=== PATIENT | male | born 1945 | race Caucasian/White ===

== ENCOUNTER 2019-04-26 07:56 | Day surgery (SDC) ==
--- NOTE | 2019-04-19 17:09 | EKG Report ---
Test Performed on : 04/19/2019 5:00:15 PM Test Reason : PAT Blood Pressure : / mmHG Vent. Rate : 079 BPM Atrial Rate : 079 BPM P-R Int : 188 ms QRS Dur : 076 ms QT Int : 356 ms P-R-T Axes : 071 -34 052 degrees QTc Int : 408 ms Normal sinus rhythm. Left axis deviation Abnormal ECG When compared with ECG of 01-JUL-2017 14:07, No significant change was found Confirmed by Merle JOHNSTON, Yann ([id number]) on 04/19/2019 5:42:41 PM
[2019-04-19 17:18] LABS: URINE SOURCE CLEAN CATCH
[2019-04-19 17:24] LABS: BASO# 0.02 X1000 (0.0-0.2); BASO% 0.2 % (0.0-0.8); EOS% 6.1 % (0.0-10.0); HEMATOCRIT 45.4 % (42.0-52.0); HEMOGLOBIN 14.9 g/dL (14.0-18.0); IMM GRAN# 0.03 X1000 (0.0-0.04); IMM GRAN% 0.4 % (0.0-0.5); LYMPH# 3.08 X1000 (1.2-3.4); LYMPH% 37.6 % (20.5-51.1); MCH 30.8 PG (27-31); MCHC 32.8 g/dL (33-37); MONO# 0.77 X1000 (0.11-0.59); MONO% 9.4 % (1.7-9.3); MPV 10.9 FL (7.4-10.4); NEUT% 46.3 % (42.2-75.2); PLT 184 X1000 (130-400); RBC 4.83 XMIL (4.7-6.1); RDW 13.1 % (11.5-14.5)
[2019-04-19 17:25] LABS: BILIRUBIN URINE NEGATIVE (NEGATIVE); BLOOD URINE NEGATIVE (NEGATIVE); COLOR YELLOW; GLUCOSE URINE NEGATIVE (NEGATIVE); KETONE URINE NEGATIVE (NEGATIVE); LEUKOCYTES URINE NEGATIVE (NEGATIVE); NITRITE URINE NEGATIVE (NEGATIVE); PROTEIN URINE NEGATIVE (NEGATIVE); SP GRAVITY URINE 1.016; TURBIDITY URINE CLEAR (CLEAR); UR EPITHELIAL CELLS <10 /HPF (<10); URINE BACTERIA NEGATIVE /HPF; URINE RBC <10 /HPF (<10); URINE WBC <10 /HPF (<10); UROBILINOGEN URINE NORMAL (NORMAL)
[2019-04-19 17:34] LABS: HEMOGLOBIN A1C 5.8 % (4.8-6.0)
[2019-04-19 17:39] LABS: INR 0.96; PROTIME 12.9 Seconds (11.0-16.0)
[2019-04-19 17:40] LABS: PTT 26.1 Seconds (22.3-41.8)
[2019-04-19 17:45] LABS: CALCIUM 9.8 mg/dL (8.8-10.2); CREATININE 1.4 mg/dL (0.7-1.2); POTASSIUM 4.5 mmol/L (3.5-5.1)
[2019-04-26] MEDS ORDERED: COLACE ONE (08:07)
[2019-04-26] MEDS ORDERED: LR 1,000 ML ONE (08:07)
[2019-04-26] MEDS ORDERED: REGLAN ONE (08:07)
[2019-04-26] MEDS ORDERED: CELEBREX ONE (08:07)
[2019-04-26] MEDS ORDERED: LYRICA ONE (08:07)
[2019-04-26] MEDS ORDERED: KEFZOL 1 GM/D5W 2 GM/100 ML IVPB ONE (08:07)
[2019-04-26] MEDS ORDERED: PEPCID ONE (08:07)
[2019-04-26] MEDS ORDERED: XYLOCAINE-MPF 2% ONE ×2 (08:21→11:34)
[2019-04-26] MEDS ORDERED: DECADRON ONE (08:21)
[2019-04-26] MEDS ORDERED: VERSED ONE (08:22)
[2019-04-26] MEDS ORDERED: FENTANYL ONE (08:23)
[2019-04-26] MEDS ORDERED: TORADOL ONE (09:35)
[2019-04-26] MEDS ORDERED: DURAMORPH ONE (09:35)
[2019-04-26] MEDS ORDERED: MARCAINE 0.25% PF ONE (09:35)
[2019-04-26] MEDS ORDERED: VANCOMYCIN ONE ×2 (09:35→11:16)
[2019-04-26] MEDS ORDERED: NEOSPORIN G.U. IRRIGANT ONE (09:36)
[2019-04-26] MEDS ORDERED: SODIUM CHLORIDE 0.9% ONE (09:36)
[2019-04-26] MEDS ORDERED: EXPAREL 1.3% ONE (09:36)
[2019-04-26] MEDS ORDERED: DIPRIVAN 1% 500 MG/50 ML BOTTLE ONE (09:37)
[2019-04-26] MEDS ORDERED: ZOFRAN ONE (10:21)
[2019-04-26] MEDS ORDERED: OFIRMEV 1000 MG/ISOTONIC SOLN 1,000 MG/100 ML BOTTLE ONE (10:21)
[2019-04-26] MEDS: CYKLOKAPRON 1,000 MG/NS 2,000 MG/200 ML IVPB ONE ×2 (10:25→10:55)
[2019-04-26] MEDS ORDERED: EPHEDRINE ONE (10:47)
[2019-04-26] MEDS ORDERED: ROBINUL ONE (11:01)
[2019-04-26] MEDS ORDERED: NEO-SYNEPHRINE ONE (11:06)
[2019-04-26] MEDS ORDERED: DIPRIVAN 1% ONE (11:22)
[2019-04-26] MEDS ORDERED: NS 1,000 ML ONE (12:35)
--- NOTE | 2019-04-26 13:14 | Diag Imaging Result Doc PS360 ---
EXAM: KNEE 1-2 VIEWS-LEFT 04/26/2019 HISTORY: L TKA TECHNIQUE: Left knee two views COMMENT: There is a total knee arthroplasty. There is no evidence of acute fracture or other bony abnormality. IMPRESSION: Postsurgical changes. Electronically signed by Rene Luong 04/26/2019 1:12 PM
[2019-04-26 13:23] LABS: URINE SOURCE CATH
[2019-04-26 13:37] LABS: BILIRUBIN URINE NEGATIVE (NEGATIVE); BLOOD URINE NEGATIVE (NEGATIVE); COLOR YELLOW; GLUCOSE URINE NEGATIVE (NEGATIVE); KETONE URINE NEGATIVE (NEGATIVE); LEUKOCYTES URINE NEGATIVE (NEGATIVE); NITRITE URINE NEGATIVE (NEGATIVE); PH URINE 5.5; PROTEIN URINE NEGATIVE (NEGATIVE); SP GRAVITY URINE 1.021; TURBIDITY URINE CLEAR (CLEAR); UROBILINOGEN URINE NORMAL (NORMAL)
[2019-04-26 13:40] LABS: UR EPITHELIAL CELLS <10 /HPF (<10); URINE BACTERIA NEGATIVE /HPF; URINE RBC <10 /HPF (<10); URINE WBC <10 /HPF (<10)
[2019-04-26] MEDS ORDERED: MORPHINE IV PRN ×3 (14:00)
[2019-04-26] MEDS ORDERED: OXY IR PO PRN (14:00)
[2019-04-26] MEDS ORDERED: ZOFRAN PO PRN (14:00)
[2019-04-26] MEDS: TYLENOL PO SCH ×2 (16:36→21:24)
[2019-04-26] MEDS: OXY IR PO PRN ×2 (16:36→21:25)
[2019-04-26] MEDS: NS 1,000 ML IV SCH (16:38)
[2019-04-26] MEDS: KEFZOL 2 GM/D5W 2 GM/50 ML IVPB IV SCH (16:59)
--- NOTE | 2019-04-26 18:20 | OPERATIVE NOTE ---
PROCEDURE DATE: 04/26/2019 POSTOPERATIVE DIAGNOSIS: Degenerative osteoarthritis of the left knee. POSTOPERATIVE DIAGNOSIS: Degenerative osteoarthritis of the left knee. PROCEDURE: Left total knee arthroplasty DePuy Attune size 8 posterior stabilized femur, a size 8 tibial tray, a 7 mm rotating platform tibial insert, and a 38 mm medialized anatomic patella. SURGEON: Ant Castro MD MEASURING CLERK: JOSE Pal, who was necessary for proper retraction and manipulation of the extremity during the case. SECOND SENIOR PROCESS ANALYST: Troy Yates RN ANESTHESIA: Spinal. IV FLUIDS: 2000 mL lactated Ringer's. ESTIMATED BLOOD LOSS: 30 mL. TOURNIQUET TIME: 80 minutes at 300 mmHg. COMPLICATIONS: None. INDICATION: The patient is a pleasant 73-year-old male with chronic history of worsening pain and discomfort of the left knee. He has continued to have pain and discomfort despite appropriate nonoperative treatment. Patient's has progressed to affect his activities of daily living. X- rays revealed degenerative arthritis and recommendation to proceed with left total knee arthroplasty was offered. Risks and benefits of surgery were explained, including the risks of anesthesia, , bleeding, infection, failure to relieve pain, postoperative stiffness, nerve injury, blood clots, and other imponderables. All questions answered. The patient and family wished to proceed with surgery. OPERATION IN DETAIL: The patient was taken to the operating room and underwent spinal anesthesia. After adequate anesthesia was obtained, the patient's left lower extremity was prepped and draped in the usual sterile fashion. Esmarch was used to exsanguinate the left lower extremity and the tourniquet was inflated to 300 mmHg. A standard anterior incision made with skin knife. Medial and lateral skin envelopes were developed. Standard medial parapatellar arthrotomy was then performed. Patella fat pad was excised. Superior retractors were then placed. Approximately 1 cm anterior to the PCL insertion, the starting reamer was passed. Intramedullary guide with a distal femoral cutting block was pinned in position. The distal femoral cut was then performed in a standard fashion. A sizing block was placed, size 8. Corresponding pins were placed. A size 8 cutting block was pinned in position. Anterior, posterior, chamfer cuts were then made. Attention was then turned to the proximal tibias using the extramedullary guide, the proximal tibia was resected with the tibia cutting block which was confirmed to be in good alignment with the alignment winston. The medial and lateral menisci were excised. A curved osteotome was used to remove the posterior osteophytes off the distal femur. A spacer block was placed with good soft tissue balance in both flexion and extension. Attention turned back to the proximal tibia where a size 8 tibial tray appeared to be the correct size. This was pinned in position. This was followed by a central reamer and a fin punch. A box cutting guide was then pinned on the distal femur. A box cut was performed. A trial femoral component was then placed and 2 lug holes were drilled. The trial tibial insert was then placed with good soft tissue balancing. The patella had been everted earlier and resected in a standard fashion. Protective disk was placed. After that attention was turned to the patella at this time and protective disk was removed a size 38 appeared to correct size. Corresponding holes were drilled. A size 38 patella was placed. It had good patellofemoral tracking. The components were then removed. Copious irrigation was performed with antibiotic pulsatile lavage. Vancomycin was mixed with cement on the back table. Sequential cementing was then performed first with the tibial tray and excess cement was removed with the [place] followed by the femoral component. Excess cement removed with a [place] followed by trial tibial insert in full extension. Axial loading was maintained while the cement cured. Axial loading and full extension was maintained while cement cured. The patella component was cemented in the standard fashion. Patella clamp was placed. While cement was curing, Exparel was placed in deep soft tissue, as well as subcutaneous tissue. After the cement cured, peripheral cement was removed with a small osteotome. The patella size 7 tibial insert appeared to be the correct size. This was then removed. Exparel was placed in the posterior capsule. The wound was copiously irrigated with antibiotic pulsatile lavage. A size 7 mm rotating platform tibial insert was then placed. Attention then turned to the patella and had some prominent lateral bone which was excised on the lateral aspect. To smooth the contour, this was removed. The knee was then carried through range of motion. Good range of motion. Good stability and good patellofemoral tracking. A / Hemovac drain was placed and was not sewn in. Copious irrigation with antibiotic pulsatile lavage. Number 1 Vicryl was then used to repair the arthrotomy followed by 2-0 Vicryl for subcutaneous tissue and skin jerome. Adaptic, sterile 4 x 4, Webril, cryo unit and Azael wrap was applied the left lower extremity. Patient tolerated the procedure and was transferred to recovery room in stable condition. cc: Ant Castro MD MTDD
[2019-04-26] MEDS ORDERED: NEURONTIN PO SCH (21:00)
[2019-04-26] MEDS ORDERED: ZYLOPRIM PO SCH (21:00)
[2019-04-26] MEDS ORDERED: CARDIZEM CD PO SCH (21:00)
[2019-04-26] MEDS ORDERED: LOPRESSOR PO SCH (21:00)
[2019-04-26] MEDS ORDERED: LIPITOR PO SCH (21:00)
[2019-04-26] MEDS ORDERED: PRINIVIL PO SCH (21:00)
[2019-04-26] MEDS: COLACE PO SCH (21:24)
[2019-04-26] MEDS: PERIDEX MT SCH (21:27)
[2019-04-27] MEDS: KEFZOL 2 GM/D5W 2 GM/50 ML IVPB IV SCH (00:38)
[2019-04-27 06:55] LABS: HEMOGLOBIN 12.3 g/dL (14.0-18.0)
[2019-04-27 07:14] LABS: CALCIUM 8.9 mg/dL (8.8-10.2); CREATININE 1.4 mg/dL (0.7-1.2); POTASSIUM 4.4 mmol/L (3.5-5.1)
[2019-04-27 08:25] VITALS: BP 104/38
[2019-04-27] MEDS: NS 1,000 ML IV SCH (08:29)
[2019-04-27] MEDS: TYLENOL PO SCH ×2 (08:29→09:08)
[2019-04-27] MEDS ORDERED: ASPIRIN PO SCH (09:00)
[2019-04-27] MEDS ORDERED: PROTONIX PO SCH (09:00)
[2019-04-27] MEDS ORDERED: COLCRYS PO SCH (09:00)
[2019-04-27] MEDS ORDERED: MAG-OX PO SCH (09:00)
[2019-04-27] MEDS ORDERED: ZYRTEC PO SCH (09:00)
[2019-04-27] MEDS: OXY IR PO PRN (09:06)
[2019-04-27] MEDS: COLACE PO SCH (09:07)
[2019-04-27] MEDS: PERIDEX MT SCH (09:08)
--- NOTE | 2019-04-27 11:39 | ORTHOPAEDICS PROGRESS NOTE ---
DATE: 04/27/2019 SUBJECTIVE: The patient was 73-year-old male who is 1 day status post left total knee arthroplasty. He is currently resting comfortably. He was able to ambulate yesterday with physical therapy. He is currently sitting in the chair with no complaints this morning. PHYSICAL EXAMINATION: Patient's left lower extremity wound looks good. There are no signs or symptoms of infection. Calf is soft. Grossly neurovascularly intact. He has active dorsiflexion and plantar flexion. LABORATORY DATA: His labs are pending. IMPRESSION: Postoperative day #1 status post left total knee arthroplasty. PLAN: At this point, we will plan on discharging him home after physical therapy. The patient will be scheduled to begin outpatient physical therapy tomorrow. He will follow up in the office on 05/09/2019. cc: Ant Castro MD
== END 2019-04-27 12:18 | disposition home or self-care (01) ==
LOC: OR 07:56 → 4N 07:56 → OR 04-27 12:18
PROVIDERS: ATTEND Orthopaedic Surgery Adult Reconstructive Orthopaedic Surgery